=== PATIENT | female | born 1995 | race Caucasian/White ===

== ENCOUNTER 2018-06-25 21:44 | Inpatient (IN) | payer OTHER ==
[2018-06-25 23:27] VITALS: BMI 29.2
[2018-06-25 23:27] LABS: BASO % 0.4 % (0-2.0); EOS % 0.3 % (0-4.5); HEMATOCRIT 38.1 % (32.4-45.2); HEMOGLOBIN 12.9 GM/dL (10.7-15.3); LYMPH % 15.4 % (8-40); MCH 32.1 pg (25.7-33.7); MCHC 33.8 g/dl (32.0-36.0); MEAN CELL VOLUME 94.7 fl (80-96); MEAN PLT VOLUME 9.2 fl (7.5-11.1); MONO % 6.9 % (3.8-10.2); PLATELET COUNT 220 K/MM3 (134-434); RBC 4.02 M/mm3 (3.60-5.2); RDW 12.6 % (11.6-15.6)
[2018-06-25 23:39] LABS: INR 0.84 (0.83-1.09); PROTHROMBIN TIME (PATIENT) 9.9 SEC (9.7-13.0)
[2018-06-25 23:42] LABS: ACTIVATED PTT 27.7 SECONDS (25.2-36.5)
[2018-06-25] MEDS ORDERED: DEXTROSE 5%-LACTATED RINGERS 1,000 ML IV SCH (23:45)
[2018-06-26 00:02] LABS: ANION GAP 11 MMOL/L (8-16); BLOOD UREA NITROGEN 8 mg/dL (7-18); CALCIUM 8.3 mg/dL (8.5-10.1); CHLORIDE 106 mmol/L (98-107); CO2 22 mmol/L (21-32); CREATININE 0.5 mg/dL (0.55-1.3); GLUCOSE,RANDOM 83 mg/dL (74-106); POTASSIUM 3.7 mmol/L (3.5-5.1); SODIUM 139 mmol/L (136-145)
[2018-06-26] MEDS ORDERED: BUTORPHANOL TARTRATE 1 MG/ML VIAL IVPUSH ONE (00:10)
[2018-06-26] MEDS ORDERED: PROMETHAZINE HCL 25 MG/1 ML VIAL IVPUSH ONE (00:10)
[2018-06-26] MEDS ORDERED: BUTORPHANOL TARTRATE 1 MG/ML VIAL ONE ×2 (00:45)
[2018-06-26] MEDS ORDERED: PROMETHAZINE HCL 25 MG/1 ML VIAL ONE (00:46)
[2018-06-26] MEDS ORDERED: OXYTOCIN 20 UNITS in 0.9% NS 20 UNIT/1,000 ML INFUS.BAG IV ONE ×2 (03:27→09:24)
[2018-06-26] MEDS ORDERED: LIDOCAINE HCL 1% PRESERVATIVE FREE - 30ML VIAL ONE (03:27)
[2018-06-26] MEDS ORDERED: BENZOCAINE 28 GM HEMORRHOIDAL OINTMENT TP PRN (04:47)
[2018-06-26] MEDS ORDERED: BENZOCAINE 20% 57 GM BOTTLE TP PRN (04:47)
[2018-06-26] MEDS ORDERED: IBUPROFEN 600 MG TABLET (FP) PO PRN (04:47)
[2018-06-26] MEDS ORDERED: WITCH HAZEL 50% (TUCKS) 40 PAD/JAR PAD TP PRN (04:47)
[2018-06-26] MEDS ORDERED: ACETAMINOPHEN 325 MG TABLET (FP) PO PRN (04:47)
--- NOTE | 2018-06-26 04:51 | HP ---
Past Medical History - Admission Chief Complaint: Uterine contractions History of Present Illness: 22yo @ 39+wks here with uterine ctx q2-4 mins apart. No VB/LOF. +FM Preg uncomplicated. Seen in office earlier, /-3 today. 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: Alzheimer's, CVA, Dementia, Migraine, Multiple Sclerosis, Peripheral Neuropathy, Parkinson's, Seizure, Syncope, TIA, Vertigo, Other Cardiovascular: No: AFIB, Aneurysm, Aortic Insufficiency, Aortic Stenosis, CAD, CHF, Deep Vein Thrombosis, HTN, Hyperlipdemia, CA, Mitral Insufficiency, Mitral Stenosis, Murmur, Pulmonary Hypertension, Other Pulmonary: No: Asthma, Bronchitis, Cancer, COPD, O2 Dependent, Pneumonia, Previously Intubated, Pulmonary Embolus, Pulmonary Fibrosis, Sleep Apnea, Other Gastrointestinal: No: Ascites, Cancer, Constipation, Crohn's Disease, Diverticulitis, Diverticulosis, Esophageal Varices, Gastritis, GERD, GI Bleed, Hemorrhoids, Hiatal Hernia, Inflamatory Bowel Disease, Irritable Bowel Disease, Pancreatitis, Peptic Ulcer Disease, Ulcerative Colitis, Other Hepatobiliary: No: Cirrhosis, Cholelithiasis, Cholecystitis, Choledocholithiasis , Hepatitis A, Hepatitis B, Hepatitis C, Other Renal/: No: Renal Failure, Renal Inusuff, BPH, Cancer, Hematuria, Hemodialysis , Neurogenic Bladder, Renal Calculi, UTI, Other Reproductive: No: Ectopic , Endometriosis, Fibroids, PID, Polycystic Ovary Syndrome, Postmenopausal, Other ...: 1 ...Para: 0 ...Term: 0 ...: 0 ...Spon : 0 ...Induced : 0 ...Multiple Gestation: 0 ...LMP: 09/22/17 ... Weeks Gestation by Dates: 39.3 ...EDC by Dates: 06/29/18 ...EDC by Sono: 07/02/18 Heme/Onc: No: Anemia, B12 Deficiency, Bleeding Disorder, Cancer, Current Chemotherapy, Current Radiation Therapy, Hemochromatosis, Hypercoaguable State, Myeloproliferative Synd, Sickle Cell Disease, Sickle Cell Trait, Thrombocytopenia, Other Infectious Disease: No: AIDS, C-Diff, Herpes Zoster, HIV, MRSA, STD's, Tuberculosis, VREF, Other Psych: No: Addictions, Anxiety, Bipolar, Depression, Panic, Psychosis, Schizophrenia, Other Musculoskeletal: No: Bursitis, Chronic low back pain, Hemiparesis, Hemiplegia, Osteoarthritis, Paraplegia, Other Rheumatology: No: Fibromyalgia, Gout, Lupus, Rheumatoid Arthritis, Sarcoidosis, Vasculitis, Other ENT: No: Allergic Rhinitis, Sinusitis, Other Endocrine: No: Hardee's Disease, Mercer's Disease, Diabetes Insipidus, Diabetes Mellitus, Hyperparathyroidism, Hyperthyroidism, Hypothyroidism, Osteopenia, SIADH, Other Dermatology: No: Basal Cell, Cellulitis, Eczema, Melanoma, Psoriasis, Squamous Cell, Other - Past Surgical History Past Surgical History: No: None, AAA Repair, AICD, Amputation, Appendectomy, Arthrosocopy, AV Fistula/Graft, Bariatric Surgery, Breast Biopsy, Bypass, CABG, Carotid Endarterectomy, Cataract Removal, Cholecystectomy, Colectomy, Colonoscopy, Colostomy, Craniotomy, , Cystectomy, Hernia Repair, Hysterectomy, Ileal Conduit, Ileosotomy, Joint Replacement, Kidney Transplant, Laminectomy, Liver Transplant, Mastectomy, Nephrectomy, Oopherectomy, Orchiectomy, Permanent Pacemaker, Prostatectomy, Splenectomy, Stent, Thoracotomy , TURP, Tonsillectomy, Tubal Ligation, Upper Endoscopy, Valve Replacement, Vasectomy, Vein Stripping/Ligation Hx Myomectomy: No Hx Transabdominal Cerclage: No - Smoking History Smoking history: Never smoked Aproximately how many cigarettes per day: 0 - Alcohol/Substance Use Hx Alcohol Use: No History of Substance Use: reports: None - Social History Usual Living Arrangement: Yes: Alone History of Recent Travel: No Home Medications - Allergies Allergies/Adverse Reactions: Allergies Allergy/AdvReac Type Severity Reaction Status Date / Time No Known Allergies Allergy Verified 06/26/18 00:00 - Home Medications Home Medications: Ambulatory Orders Ferrous Sulfate [Iron] 325 mg PO DAILY 05/20/18 Vitamins (Sjr) - 1 tab PO DAILY 06/23/18 Physical Exam - Maternity Vital Signs: Vital Signs Temperature 98.5 F 06/26/18 03:11 Pulse Rate 88 06/26/18 03:11 Respiratory Rate 17 06/26/18 03:11 Blood Pressure 137/79 06/26/18 03:11 O2 Sat by Pulse Oximetry (%) - Abdominal Exam/OB Number of Fetuses: Single Presentation: Vertex Contractions: Yes Regularity: Regular Intensity: Mod/Strong Category: I Accelerations: Uniform Decelerations: None - Vaginal Exam/OB Vaginal Bleediing: No Speculum Exam: No Dilatation (cm): 4 Effacement (%): 100 Amniotic Membrane Status: Ruptured Presentation: Vertex/Position Station: -3 - Physical Exam Edema: No - Labs Lab Results: CBC, BMP 06/25/18 22:55 06/25/18 22:55 Problem List - Problems (1) Uterine contractions Code(s): [id number] - Assessment/Plan 22yo @ 39+wks here in labor Admit to [facility]D Cle[facility], IVFs Augment prn Cat 1 tracing Anticipate MARIO Boswell MD
--- NOTE | 2018-06-26 04:56 | PN ---
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 No anesthesia. 39wk . Spontaneous delivery of anterior shoulder. placed on maternal abdomen. Cord clamped and cut after 2 minutes. Apgars 9/9. Weight pending. Spontaneous delivery of intact placenta. Fundus firm. Perineum inspected, small superficial midline perineal laceration- not bleeding. Not repaired. EBL 300ml. Kellie Boswell MD
[2018-06-26] MEDS ORDERED: OXYTOCIN 20 UNITS in 0.9% NS 20 UNIT/1,000 ML INFUS.BAG IV SCH (05:00)
[2018-06-26] MEDS: PRENATAL VITAMINS W/ FOLIC ACID TABLET (FP) PO SCH (10:30)
[2018-06-26] MEDS: FERROUS SO4 325 MG TABLET (FP) PO SCH (10:30)
[2018-06-27] MEDS: FERROUS SO4 325 MG TABLET (FP) PO SCH (08:00)
[2018-06-27 08:12] LABS: BASO % 0.3 % (0-2.0); EOS % 0.7 % (0-4.5); HEMATOCRIT 31.9 % (32.4-45.2); HEMOGLOBIN 10.7 GM/dL (10.7-15.3); LYMPH % 21.6 % (8-40); MCH 32.3 pg (25.7-33.7); MCHC 33.6 g/dl (32.0-36.0); MEAN CELL VOLUME 96.1 fl (80-96); MEAN PLT VOLUME 8.4 fl (7.5-11.1); MONO % 6.1 % (3.8-10.2); NEUT % 71.3 % (42.8-82.8); PLATELET COUNT 177 K/MM3 (134-434); RBC 3.32 M/mm3 (3.60-5.2); RDW 12.5 % (11.6-15.6); WHITE BLOOD COUNT 10.2 K/mm3 (4.0-10.0)
[2018-06-27] MEDS: PRENATAL VITAMINS W/ FOLIC ACID TABLET (FP) PO SCH (10:00)
[2018-06-27] MEDS ORDERED: SENNOSIDES/DOCUSATE COMBO (SENNA PLUS) TABLET (UD) PO PRN (22:00)
[2018-06-28 07:58] VITALS: BP 113/67; PULSE 79; TEMP 98.2
[2018-06-28] MEDS: FERROUS SO4 325 MG TABLET (FP) PO SCH (08:26)
[2018-06-28] MEDS: PRENATAL VITAMINS W/ FOLIC ACID TABLET (FP) PO SCH (09:07)
--- NOTE | 2018-06-28 11:14 | PN ---
Post Progress Note - Subjective Subjective: Pt feeling well; no complaints Post Day: 2 Type of Delivery: Vital Signs: Vital Signs Temperature 98.2 F 06/28/18 07:20 Pulse Rate 79 06/28/18 07:20 Respiratory Rate 18 06/28/18 07:20 Blood Pressure 113/67 06/28/18 07:20 O2 Sat by Pulse Oximetry (%) 98 06/26/18 21:00 Breast Exam: Yes: Soft Uterus: Yes: Fundus Firm Abdomen/GI: Yes: Abdomen soft Lochia: Yes: Rubra Lochia, amount: Small Extremities: Yes: Calves non-tender Activity: Ambulating - Labs Labs: CBC WBC 10.2 K/mm3 (4.0-10.0) H 06/27/18 07:20 RBC 3.32 M/mm3 (3.60-5.2) L 06/27/18 07:20 Hgb 10.7 GM/dL (10.7-15.3) 06/27/18 07:20 Hct 31.9 % (32.4-45.2) L D 06/27/18 07:20 MCV 96.1 fl (80-96) H 06/27/18 07:20 MCH 32.3 pg (25.7-33.7) 06/27/18 07:20 MCHC 33.6 g/dl (32.0-36.0) 06/27/18 07:20 RDW 12.5 % (11.6-15.6) 06/27/18 07:20 Plt Count 177 K/MM3 (134-434) 06/27/18 07:20 MPV 8.4 fl (7.5-11.1) 06/27/18 07:20 Absolute Neuts (auto) 7.3 K/mm3 (1.5-8.0) 06/27/18 07:20 Neutrophils % 71.3 % (42.8-82.8) 06/27/18 07:20 Lymphocytes % 21.6 % (8-40) D 06/27/18 07:20 Monocytes % 6.1 % (3.8-10.2) 06/27/18 07:20 Eosinophils % 0.7 % (0-4.5) D 06/27/18 07:20 Basophils % 0.3 % (0-2.0) 06/27/18 07:20 Nucleated RBC % 0 % (0-0) 06/27/18 07:20 Problem List - Problems (1) Vaginal delivery Assessment/Plan: Pt PPD#2 s/p stable for discharge home f/u pp visit [address] Hernández Code(s): O80 - ENCOUNTER FOR FULL-TERM UNCOMPLICATED DELIVERY
== END 2018-06-28 15:10 | disposition home or self-care (01) | DRG 560 ==
LOC: JLDR 21:44 → J3W 06-26 09:52
PROVIDERS: ADMIT Obstetrics & Gynecology; ATTEND Obstetrics & Gynecology
PROC: 10E0XZZ Delivery of Products of Conception, External Approach (ICD-10-PCS; principal; 2018-06-26)
PROC: 0W8NXZZ Division of Female Perineum, External Approach (ICD-10-PCS; 2018-06-26)
DX: O80 Encounter for full-term uncomplicated delivery (principal); Z3A.39 39 weeks gestation of pregnancy; Z37.0 Single live birth
CPT/HCPCS: 36415; 59409; 80048; 85025; 85610; 85730; 86593; 86850; 86900; 86901